=== PATIENT | female | born 1930 | race American Indian/Alaskan Native ===

== ENCOUNTER 2016-10-05 11:01 | Day surgery (SDC) | payer MEDICARE ==
[~2016-10-05 11:01] MED LIST: IOPIDINE OD ONE; MYDRIACYL 1% OD ONE; NEOFRIN OD ONE
[2016-10-05 11:38] VITALS: BP 134/78
[2016-10-05] MEDS ORDERED: NEOFRIN OD ONE (11:56)
[2016-10-05] MEDS ORDERED: IOPIDINE OD ONE (11:56)
[2016-10-05] MEDS ORDERED: MYDRIACYL 1% OD ONE (11:56)
== END 2016-10-05 11:02 | disposition home or self-care (01) ==
LOC: OR 11:01
PROVIDERS: ATTEND Specialist
DX: H26.491 Other secondary cataract, right eye (principal); E11.36 Type 2 diabetes mellitus with diabetic cataract; I10 Essential (primary) hypertension; Z90.710 Acquired absence of both cervix and uterus; Z98.890 Other specified postprocedural states
CPT/HCPCS: 82962

== ENCOUNTER 2017-09-28 17:45 | Emergency (ER) | payer MEDICARE ==
--- NOTE | 2017-09-28 18:24 | Emergency Department Report ---
ED Lower Extremity HPI - General Chief Complaint: Extremity Injury, Lower Stated Complaint: FOOT PAIN Time Seen by Provider: 09/28/17 18:23 Source: patient, EMS Mode of arrival: Stretcher Limitations: Physical Limitation - History of Present Illness Initial Comments: Patient is an 87-year-old female that presents emergency room with right foot pain and redness and swelling 4 days. Patient was brought in by EMS due to inability to put weight on that right foot. Patient saw her primary care was given a shot of steroids and prescribed probenecid for possible gout flareup. Patient states the pain is a 7 out of 10 patient states the pain has improved slightly but is still significant. Patient denies trauma and fall. Patient denies chest pain shortness of breath. Patient denies calf pain or calf tenderness.. Patient has a history of diabetes, hypertension, hyperlipidemia, and CHF. MD Complaint: other (right foot pain without injury) -: Sudden Severity: severe Severity scale (0 -10): 7 Improves With: rest Worsens With: weight bearing, movement, palpation Associated Symptoms: swelling, unable to bear weight - Related Data Home Medications Medication Instructions Recorded Confirmed Last Taken Aspirin [Adult Low Dose Aspirin EC] 81 mg PO QDAY 09/14/16 09/21/16 Unknown amLODIPine [Norvasc] 10 mg PO DAILY 09/14/16 09/21/16 Unknown glipiZIDE [Glucotrol] 5 mg PO QDAY 09/14/16 09/21/16 Unknown metFORMIN [Glucophage] 500 mg PO BID 09/14/16 09/21/16 Unknown Previous Rx's Medication Instructions Recorded Last Taken Type Sulfamethoxazole/Trimethoprim 1 each PO BID 10 Days #20 tablet 09/28/17 Unknown Rx [Bactrim DS TAB] methylPREDNISolone [Medrol] 4 mg PO DAILY 6 Days #1 tab.ds.pk 09/28/17 Unknown Rx Allergies Allergy/AdvReac Type Severity Reaction Status Date / Time No Known Allergies Allergy Unverified 09/14/16 14:36 ED Review of Systems ROS: Stated complaint: FOOT PAIN Other details as noted in HPI Comment: All other systems reviewed and negative Constitutional: denies: chills, fever Eyes: denies: eye pain, eye discharge, vision change ENT: denies: ear pain, throat pain Respiratory: denies: cough, shortness of breath, wheezing Cardiovascular: denies: chest pain, palpitations Endocrine: no symptoms reported Gastrointestinal: denies: abdominal pain, nausea, diarrhea Genitourinary: denies: urgency, dysuria, discharge Musculoskeletal: denies: back pain, joint swelling, arthralgia Skin: denies: rash, lesions Neurological: denies: headache, weakness, paresthesias Psychiatric: denies: anxiety, depression Hematological/Lymphatic: denies: easy bleeding, easy bruising ED Past Medical Hx - Past Medical History Previous Medical History?: Yes Hx Hypertension: Yes Hx Congestive Heart Failure: Yes Hx Diabetes: Yes Additional medical history: gout, hld. - Surgical History Past Surgical History?: No - Family History Family history: no significant, hypertension - Social History Smoking Status: Never Smoker Substance Use Type: None - Medications Home Medications: Home Medications Medication Instructions Recorded Confirmed Last Taken Type Aspirin [Adult Low Dose Aspirin EC] 81 mg PO QDAY 09/14/16 09/21/16 Unknown History amLODIPine [Norvasc] 10 mg PO DAILY 09/14/16 09/21/16 Unknown History glipiZIDE [Glucotrol] 5 mg PO QDAY 09/14/16 09/21/16 Unknown History metFORMIN [Glucophage] 500 mg PO BID 09/14/16 09/21/16 Unknown History Sulfamethoxazole/Trimethoprim 1 each PO BID 10 Days #20 tablet 09/28/17 Unknown Rx [Bactrim DS TAB] methylPREDNISolone [Medrol] 4 mg PO DAILY 6 Days #1 tab.ds.pk 09/28/17 Unknown Rx ED Physical Exam - General Limitations: Physical Limitation General appearance: alert, in no apparent distress - Head Head exam: Present: atraumatic, normocephalic - Eye Eye exam: Present: normal appearance - ENT ENT exam: Present: mucous membranes moist - Neck Neck exam: Present: normal inspection - Respiratory Respiratory exam: Present: normal lung sounds bilaterally. Absent: respiratory distress - Cardiovascular Cardiovascular Exam: Present: regular rate, normal rhythm. Absent: systolic murmur, diastolic murmur, rubs, gallop - GI/Abdominal GI/Abdominal exam: Present: soft, normal bowel sounds - Extremities Exam Extremities exam: Present: normal inspection, other (right foot tenderness to palpation over MTP joint and distal foot. redness noted on rt big toe and dorsal foot. ttp. ) - Back Exam Back exam: Present: normal inspection - Neurological Exam Neurological exam: Present: alert, oriented X3 - Psychiatric Psychiatric exam: Present: normal affect, normal mood - Skin Skin exam: Present: warm, dry, intact, normal color. Absent: rash ED Course Vital Signs 09/28/17 09/28/17 09/28/17 17:56 19:17 19:30 Temperature 98 F Pulse Rate 70 Respiratory 16 Rate Blood Pressure 148/72 122/69 O2 Sat by Pulse 99 98 98 Oximetry ED Lower Extremity MDM - Lab Data Result diagrams: 09/28/17 19:08 09/28/17 19:08 - Radiology Data Radiology results: image reviewed interpreted by me: No acute findings on x-ray of foot - Medical Decision Making is a 87-year-old female that presented with right foot pain, tenderness, and swelling and warmth. Findings consistent with gouty arthritis and cellulitis. Will continue probenecid as PCP prescribed. Will add Bactrim and Medrol Dosepak. All results discussed with patient and family. patient stable for discharge. - Differential Diagnosis gout/ oa. cellulitis. pain. sprain. Critical care attestation.: If time is entered above; I have spent that time in minutes in the direct care of this critically ill patient, excluding procedure time. ED Disposition Clinical Impression: Foot pain, Cellulitis, Gout Disposition: - TO HOME OR SELFCARE Is pt being admited?: No Does the pt Need Aspirin: No Condition: Stable Instructions: Cellulitis (ED), Acute Gouty Arthritis (ED) Additional Instructions: Patient to follow-up with primary care in 3-5 days. Patient to return to ER if condition worsens. Patient to see orthopedist in 3-5 days. Patient to take Tylenol or ibuprofen when necessary for pain. Patient to increase water. Patient to rest and elevate limb. Patient is taking prescription medications as directed. Prescriptions: methylPREDNISolone [Medrol] 4 mg PO DAILY 6 Days #1 tab.ds.pk Sulfamethoxazole/Trimethoprim [Bactrim DS TAB] 1 each PO BID 10 Days #20 tablet Time of Disposition: 20:19
[2017-09-28 19:39] LABS: Basophils # (Auto) 0.1 K/mm3 (0.0-0.1); Basophils % (Auto) 0.5 % (0.0-1.8); Eosinophils # (Auto) 0.2 K/mm3 (0.0-0.4); Eosinophils % (Auto) 1.7 % (0.0-4.3); Hematocrit 31.2 % (30.3-42.9); Hemoglobin 10.1 gm/dl (10.1-14.3); Lymphocytes # (Auto) 1.6 K/mm3 (1.2-5.4); Lymphocytes % (Auto) 12.4 % (13.4-35.0); Mean Corpuscular HGB Conc 32 % (30-34); Mean Corpuscular Hemoglobin 28 pg (28-32); Mean Corpuscular Volume 88 fl (79-97); Monocytes # (Auto) 1.3 K/mm3 (0.0-0.8); Monocytes % (Auto) 10.3 % (0.0-7.3); Platelet Count 341 K/mm3 (140-440); Red Blood Count 3.55 M/mm3 (3.65-5.03); Red Cell Distribution Width 13.3 % (13.2-15.2)
[2017-09-28 19:43] LABS: Albumin 3.2 g/dL (3.9-5); Calcium 9.7 mg/dL (8.4-10.2)
[2017-09-28 19:57] VITALS: BP 122/69
--- NOTE | 2017-09-28 20:37 | XRay Report ---
FINAL REPORT EXAM: XR FOOT 3+V RT HISTORY: FOOT PAIN TECHNIQUE: Right foot three views PRIORS: None. FINDINGS: There is hallux valgus deformity with approximately 36 degrees of angulation at the 1st metatarsal-phalangeal joint. No acute fractures are identified. Remaining joint spaces are within normal limits. Skeletal structures are osteopenic. No erosive bony changes are observed IMPRESSION: Hallux valgus Osteopenia
== END 2017-09-28 23:38 | disposition home or self-care (01) ==
LOC: ED 17:45
DX: L03.115 Cellulitis of right lower limb (principal); M10.9 Gout, unspecified; I11.0 Hypertensive heart disease with heart failure; E11.9 Type 2 diabetes mellitus without complications
CPT/HCPCS: 36415; 80053; 84550; 85025

== ENCOUNTER 2017-10-01 16:40 | Inpatient (IN) | payer MEDICARE ==
--- NOTE | 2017-10-01 22:52 | Emergency Department Report ---
ED Extremity Problem HPI - General Chief complaint: Extremity Injury, Lower Stated complaint: GOUT Time Seen by Provider: 10/01/17 22:33 Source: patient, family, EMS Mode of arrival: Wheelchair Limitations: No Limitations - History of Present Illness Initial comments: Family brought patient and report patient was here on 09/28/2017 with bilateral foot pain and was diagnosed with gout flare up. Patient says she did not know she had gout in tissue was diagnosed 3 days ago. She said redness and swelling is getting worse and she was placed on antibiotic and is not getting any better. Her daughter brought antibiotic which is Bactrim and said that patient has been taking this since Sunday. Patient was seen by Dr. Jiang patient says she went to see her primary care physician and her primary care physician placed her on probenecid which she stopped taking because she was told it is not good for her stomach or blood pressure. She was also placed on Solu- Medrol. She reports that she saw her primary care on Sunday of last week and was also told that she had gout. Upon reviewing labs from 09/28/2017 uric acid was normal patient had mild elevation in white count and her potassium was 3.1. Patient said redness and swelling to her feet are getting worse. She said her blood sugar today was at 104. Denies any increase in urination or increase in thirst. Denies any abdominal or back pain. Pain to both feet and great toe is 10 out of 10 worse with movement better with rest. Patient is a history of congestive heart failure, diabetes, hypertension and high cholesterol. She denies any numbness or 2 went to extremities. Her daughter reports that patient is unable to walk around because of pain to both feet. She said the patient has a walker at home and she cannot use that because she is having too much pain. MD Complaint: extremity pain, extremity swelling, joint swelling, joint paint Onset/Timin -: Gradual Location: bilateral lower extremity (both feet) History of Same: No -: Yes arthralgia, No fever, No associated dyspnea, No associated chest pain Severity scale (0 -10): 10 Quality: constant, other (follow-up in) Consistency: constant Improves with: immobilization, rest Worsens with: weight bearing, walking, exertion, palpation Associated Symptoms: arthralgias, other (redness and swelling). denies: chest pain, shortness of breath, fever, myalgias, rash - Related Data Home Medications Medication Instructions Recorded Confirmed Last Taken Aspirin [Adult Low Dose Aspirin EC] 81 mg PO QDAY 09/14/16 09/21/16 Unknown amLODIPine [Norvasc] 10 mg PO DAILY 09/14/16 09/21/16 Unknown glipiZIDE [Glucotrol] 5 mg PO QDAY 09/14/16 09/21/16 Unknown metFORMIN [Glucophage] 500 mg PO BID 09/14/16 09/21/16 Unknown Previous Rx's Medication Instructions Recorded Last Taken Type Sulfamethoxazole/Trimethoprim 1 each PO BID 10 Days #20 tablet 09/28/17 Unknown Rx [Bactrim DS TAB] methylPREDNISolone [Medrol] 4 mg PO DAILY 6 Days #1 tab.ds.pk 09/28/17 Unknown Rx Allergies Allergy/AdvReac Type Severity Reaction Status Date / Time No Known Allergies Allergy Unverified 09/14/16 14:36 ED Review of Systems ROS: Stated complaint: GOUT Other details as noted in HPI Comment: All other systems reviewed and negative Constitutional: no symptoms reported Eyes: denies: eye pain, eye discharge Respiratory: no symptoms reported Cardiovascular: denies: chest pain, palpitations, dyspnea on exertion, edema, syncope, paroxysmal nocturnal dyspnea Gastrointestinal: denies: abdominal pain, nausea, vomiting, diarrhea, constipation, hematemesis, melena, hematochezia Genitourinary: denies: dysuria Musculoskeletal: joint swelling, arthralgia. denies: back pain, myalgia Skin: other (redness and swelling to great toe of both feet) Neurological: abnormal gait (due to pain to both feet). denies: headache, numbness, paresthesias, confusion ED Past Medical Hx - Past Medical History Previous Medical History?: Yes Hx Hypertension: Yes Hx Congestive Heart Failure: Yes Hx Diabetes: Yes Additional medical history: gout, hld. - Surgical History Past Surgical History?: No - Family History Family history: hypertension - Social History Smoking Status: Never Smoker Substance Use Type: None - Medications Home Medications: Home Medications Medication Instructions Recorded Confirmed Last Taken Type Aspirin [Adult Low Dose Aspirin EC] 81 mg PO QDAY 09/14/16 09/21/16 Unknown History amLODIPine [Norvasc] 10 mg PO DAILY 09/14/16 09/21/16 Unknown History glipiZIDE [Glucotrol] 5 mg PO QDAY 09/14/16 09/21/16 Unknown History metFORMIN [Glucophage] 500 mg PO BID 09/14/16 09/21/16 Unknown History Sulfamethoxazole/Trimethoprim 1 each PO BID 10 Days #20 tablet 09/28/17 Unknown Rx [Bactrim DS TAB] methylPREDNISolone [Medrol] 4 mg PO DAILY 6 Days #1 tab.ds.pk 09/28/17 Unknown Rx ED Physical Exam - General Limitations: No Limitations General appearance: alert, in no apparent distress - Head Head exam: Present: atraumatic, normocephalic, normal inspection - Eye Eye exam: Present: normal appearance, PERRL, EOMI Pupils: Present: normal accommodation - ENT ENT exam: Present: normal exam, normal orophraynx, mucous membranes moist - Neck Neck exam: Present: normal inspection, full ROM. Absent: tenderness, meningismus, lymphadenopathy, thyromegaly - Respiratory Respiratory exam: Present: normal lung sounds bilaterally. Absent: respiratory distress, chest wall tenderness - Cardiovascular Cardiovascular Exam: Present: normal rhythm, tachycardia, normal heart sounds. Absent: systolic murmur, diastolic murmur - GI/Abdominal GI/Abdominal exam: Present: soft, normal bowel sounds. Absent: distended, tenderness, guarding, rebound, rigid, organomegaly, mass, bruit, pulsatile mass , hernia - Extremities Exam Extremities exam: Present: tenderness, normal capillary refill, joint swelling, other (difficulty ambulating and due to pain.). Absent: normal inspection, full ROM, pedal edema, calf tenderness - Expanded Lower Extremity Exam Left Foot/Toe exam: Present: tenderness, swelling, erythema. Absent: normal inspection, full ROM, abrasion, laceration, ecchymosis, deformity, crepidus Neuro vascular tendon exam: Present: significant pain with passive ROM of distal joint. Absent: no vascular compromise, abnormal cap refill, motor deficit, sensory deficit, tendon deficit, extremity cold to touch, pallor, abnormal 2-point discrimination, decreased fine/light touch, foot drop, peroneal nerve deficit Gait: Positive: antalgic Right Hip exam: Present: normal inspection, full ROM. Absent: tenderness, swelling, abrasion Foot/Toe exam: Present: tenderness, swelling Neuro vascular tendon exam: Present: significant pain with passive ROM of distal joint. Absent: no vascular compromise, pulse deficit, abnormal cap refill, motor deficit, sensory deficit, tendon deficit, extremity cold to touch , pallor, abnormal 2-point discrimination, decreased fine/light touch, foot drop , peroneal nerve deficit Gait: Positive: antalgic - Back Exam Back exam: Present: normal inspection, full ROM, other (physical T and ambulated due to pain to both feet. Patient able to stand and take some steps but she said is very painful). Absent: tenderness, CVA tenderness (R), CVA tenderness (L), muscle spasm, paraspinal tenderness, vertebral tenderness, rash noted - Neurological Exam Neurological exam: Present: alert, oriented X3, abnormal gait, reflexes normal ( gait is abnormal due to pain to both feet. Patient has unsteady gait) ED Course Vital Signs 10/01/17 17:26 Temperature 98.3 F Pulse Rate 106 H Respiratory 15 Rate Blood Pressure 104/68 O2 Sat by Pulse 96 Oximetry - Reevaluation(s) Reevaluation #1: 10/01/17 23:19 Patient is stable at present. Her daughter is at her bedside. Reevaluation #2: 10/02/17 00:20 Patient given Tylenol No. 3 one tablet in the emergency room which relieved her pain to both feet. Labs and x-ray result noted. Patient received Zosyn 3.375 g IV. She received 250 mils of IV. Her lungs are clear. Patient said her pain is better. Patient to be admitted to hospitalist service .n Reevaluation #3: 10/02/17 03:27 I collaborated with hospitalist who is on patient presentation, laboratory findings, clinical findings and x-ray findings. He agrees to accept patient to be admitted to inpatient. Patient updated. ED Medical Decision Making - Lab Data Result diagrams: 10/01/17 23:24 10/01/17 23:24 Lab Results 10/01/17 10/01/17 10/02/17 Range/Units 23:24 23:24 02:00 WBC 14.1 H (4.5-11.0) K/mm3 RBC 3.57 L (3.65-5.03) M/mm3 Hgb 10.2 (10.1-14.3) gm/dl Hct 31.8 (30.3-42.9) % MCV 89 (79-97) fl MCH 29 (28-32) pg MCHC 32 (30-34) % RDW 14.0 (13.2-15.2) % Plt Count 374 (140-440) K/mm3 Lymph % (Auto) 14.4 (13.4-35.0) % [place] % (Auto) 9.6 H (0.0-7.3) % Eos % (Auto) 2.0 (0.0-4.3) % Baso % (Auto) 0.3 (0.0-1.8) % Lymph # 2.0 (1.2-5.4) K/mm3 [place] # 1.4 H (0.0-0.8) K/mm3 Eos # 0.3 (0.0-0.4) K/mm3 Baso # 0.0 (0.0-0.1) K/mm3 Seg Neutrophils % 73.7 H (40.0-70.0) % Seg Neutrophils # 10.4 H (1.8-7.7) K/mm3 Sodium 137 (137-145) mmol/L Potassium 5.0 D (3.6-5.0) mmol/L Chloride 95.2 L (98-107) mmol/L Carbon Dioxide 24 (22-30) mmol/L Anion Gap 23 mmol/L BUN 52 H (7-17) mg/dL Creatinine 2.1 H D (0.7-1.2) mg/dL Estimated GFR 27 ml/min BUN/Creatinine Ratio 25 % Glucose 251 H (65-100) mg/dL Lactic Acid 2.00 (0.7-2.0) mmol/L Calcium 10.3 H (8.4-10.2) mg/dL - Radiology Data Radiology results: report reviewed X-ray of bilateral foot 2 view revealed soft tissues swelling at the first metatarsophalangeal joint bilaterally and of the forefoot bilaterally. No foreign body seen. Bone mineralization shows generalized osteopenia Mild degenerative arthrosis at the first metatarsal phalangeal joint bilaterally No mention of bone infection or fracture. Mild hallux valgus bilaterally - Medical Decision Making ED course: Patient daughter brought her to the emergency room report that patient with redness and swelling that has worsened over the last 3 days since she's been here on 09/28/2017 and was seen and treated in the emergency room. They report prior to that they were seen by their primary care doctor who is Dr. Lynne Owens in [place]. She said that her primary care doctor told her that she has gout and started her on probenecid which she stopped. She said that she came to the hospital 3 days ago when she was started on steroids and antibiotic which is Bactrim DS. Medical records indicate that patient was seen by Dr. Morena SO and treated for cellulitis and inflammation to both feet. She was given Bactrim DS which she says she's been taking since Sunday and Medrol Dosepak. Patient daughter reported that she cannot walk and swelling and redness is worsening. X-ray of both feet two-view reveals patient with soft tissue swelling to both first metatarsophalangeal joint and boat forefoot. She also has generalized osteopenia. There is no mention for osteomyelitis or any fractures or dislocation. Patient laboratory reflect leukocytosis which has not improved but has not increased since Sunday. Chemistry 3 days ago show the patient with potassium of 3.1 and her potassium now is at 5.0. Patient with worsening renal insufficiency since Sunday. Patient with a history of diabetes , hypertension, hyperlipidemia and congestive heart failure. She was given Tylenol No. 3 one tablet in the emergency room for pain to both feet which relieved her pain. Patient was given 250 mils of normal saline which was stopped due to her congestive heart failure. Patient lung sounds are clear and she has no evidence of congestive heart failure exacerbation. She does not have any swelling in her legs. She does have redness swelling and tenderness to both great toes and first metacarpal joint area distally on both feet.. Lactic acid was normal. Please refer to laboratory section and radiology section for detail on x-ray and laboratory report. Patient blood cultures are pending and she was started on Zosyn 3.375 g. I discussed this case with Dr. Kline who agrees. The patient should be admitted for failed outpatient treatment. I spoke to the hospitalist who is Dr. Luque and he agrees to accept patient to be admitted as inpatient. Patient signed over to hospitalist. She is stable and her family is aware that she will be admitted. Patient agrees to admission. Critical care attestation.: If time is entered above; I have spent that time in minutes in the direct care of this critically ill patient, excluding procedure time. ED Disposition Clinical Impression: Arthralgia of both feet, Renal insufficiency Leukocytosis, unspecified Qualifiers: Leukocytosis type: unspecified Qualified Code(s): D72.829 - Elevated white blood cell count, unspecified Cellulitis of great toe Qualifiers: Laterality: unspecified laterality Qualified Code(s): L03.039 - Cellulitis of unspecified toe Disposition: OP ADMIT IP TO THIS HOSP Is pt being admited?: Yes Does the pt Need Aspirin: No Condition: Stable
[2017-10-01] MEDS ORDERED: TYLENOL #3 PO ONE (22:59)
[2017-10-01 23:40] LABS: Basophils % (Auto) 0.3 % (0.0-1.8); Eosinophils # (Auto) 0.3 K/mm3 (0.0-0.4); Hematocrit 31.8 % (30.3-42.9); Hemoglobin 10.2 gm/dl (10.1-14.3); Lymphocytes % (Auto) 14.4 % (13.4-35.0); Mean Corpuscular HGB Conc 32 % (30-34); Mean Corpuscular Hemoglobin 29 pg (28-32); Mean Corpuscular Volume 89 fl (79-97); Monocytes # (Auto) 1.4 K/mm3 (0.0-0.8); Monocytes % (Auto) 9.6 % (0.0-7.3); Platelet Count 374 K/mm3 (140-440); Red Blood Count 3.57 M/mm3 (3.65-5.03)
[2017-10-02] MEDS ORDERED: ZOSYN/NS 3.375GM/50ML 3.375 GM/50 ML BAG IV SCH
[2017-10-02] MEDS ORDERED: NACL 0.9% 1000 ML 1,000 ML IV ONE (00:03)
[2017-10-02 00:04] LABS: Calcium 10.3 mg/dL (8.4-10.2)
--- NOTE | 2017-10-02 00:13 | XRay Report ---
FINAL REPORT PROCEDURE: XR FOOT BILAT 2V TECHNIQUE: BILATERAL foot radiographs, AP and lateral views. HISTORY: swelling/redness/pain COMPARISON: No prior studies are available for comparison. FINDINGS: RIGHT FOOT: Fracture (s) and/or Dislocation(s): None. Alignment: Normal. Joint space(s): There is mild degenerative arthrosis of the 1st metatarsophalangeal joint with mild hallux valgus configuration. Soft tissues: There is soft tissue swelling at the 1st metatarsophalangeal joint and of the forefoot. Bone mineralization: There is generalized osteopenia. Foreign bodies: None . Calcaneal spurring: None. LEFT FOOT: Fracture (s) and/or Dislocation(s): None. Alignment: Normal. Joint space(s): There is mild degenerative arthrosis of the 1st metatarsophalangeal joint with mild hallux valgus configuration. Soft tissues: There is soft tissue swelling at the 1st metatarsophalangeal joint and of the forefoot. Bone mineralization: There is generalized osteopenia. Foreign bodies: None . Calcaneal spurring: None. IMPRESSION: There are no fractures or malalignments. There is soft tissue swelling of the 1st metatarsophalangeal joints bilaterally and of the forefoot bilaterally.
--- NOTE | 2017-10-02 08:58 | History and Physical Report ---
History of Present Illness Date of examination: 10/02/17 Date of admission: 10/02/17 07:33 Chief complaint: Right foot pain for the last 4-5 days History of present illness: Very pleasant 67-year-old female patient with significant past medical history of osteoarthritis and recently diagnosed gout type 2, diabetes mellitus hypertension, presented to the emergency room with the bilateral foot pain right more than left recently diagnosed with gout flared up, was given some medications with the no relief. Patient denies any fever no nausea vomiting Patient denies any trauma Initial workup did not reveal any acute abnormalities Bilateral foot x-rays; no fractures or malalignment , soft tissue swelling present Past History Past Medical History: arthritis (gout.), diabetes, hypertension, hyperlipidemia Past Surgical History: cataract removal Social history: lives with family, full code. denies: smoking, alcohol abuse, prescription drug abuse Family history: hypertension Medications and Allergies Allergies Allergy/AdvReac Type Severity Reaction Status Date / Time No Known Allergies Allergy Unverified 09/14/16 14:36 Home Medications Medication Instructions Recorded Confirmed Last Taken Type Aspirin [Adult Low Dose Aspirin EC] 81 mg PO QDAY 09/14/16 09/21/16 Unknown History amLODIPine [Norvasc] 10 mg PO DAILY 09/14/16 09/21/16 Unknown History glipiZIDE [Glucotrol] 5 mg PO QDAY 09/14/16 09/21/16 Unknown History metFORMIN [Glucophage] 500 mg PO BID 09/14/16 09/21/16 Unknown History Sulfamethoxazole/Trimethoprim 1 each PO BID 10 Days #20 tablet 09/28/17 Unknown Rx [Bactrim DS TAB] methylPREDNISolone [Medrol] 4 mg PO DAILY 6 Days #1 tab.ds.pk 09/28/17 Unknown Rx Active Meds: Active Medications Amlodipine Besylate (Norvasc) 10 mg PO DAILY ABEL Aspirin (Halfprin Ec) 81 mg PO QDAY ABEL Glipizide (Glucotrol) 5 mg PO QDAY ABEL Sodium Chloride (Nacl 0.9% 1000 Ml) 1,000 mls @ 150 mls/hr IV DIRECT ABEL Piperacillin Sod/Tazobactam Sod (Zosyn/Ns 3.375gm/50ml) 3.375 gm in 50 mls @ 100 mls/hr IV Q6HR ABEL Last Admin: 10/02/17 00:15 Dose: 100 mls/hr Insulin Aspart (Novolog) 0 units SUB-Q ACHS ABEL; Protocol Exam - Constitutional Vitals: Temp Pulse Resp BP Pulse Ox 98.0 F 77 17 107/66 96 10/02/17 03:58 10/02/17 03:58 10/02/17 03:58 10/02/17 03:58 10/02/17 03:58 General appearance: Present: mild distress, cachectic, other (very frail) - EENT Eyes: Present: PERRL, EOM intact - Neck Neck: Present: supple, normal ROM - Respiratory Respiratory effort: normal Respiratory: bilateral: diminished, negative: rales, rhonchi, wheezing - Cardiovascular Rhythm: regular Heart Sounds: Present: S1 & S2 - Extremities Extremities: no ischemia Extremity abnormal: edema, other (swelling tenderness right and left great toe) - Abdominal General gastrointestinal: Present: soft, non-tender, non-distended, normal bowel sounds - Integumentary Integumentary: Present: clear, warm - Musculoskeletal Musculoskeletal: strength equal bilaterally, generalized weakness - Psychiatric Psychiatric: appropriate mood/affect, cooperative, other (confused at times) - Neurologic Neurologic: moves all extremities Results - Labs CBC & Chem 7: 10/01/17 23:24 10/01/17 23:24 Labs: Abnormal lab results 10/01/17 10/01/17 Range/Units 23:24 23:24 WBC 14.1 H (4.5-11.0) K/mm3 RBC 3.57 L (3.65-5.03) M/mm3 [place] % (Auto) 9.6 H (0.0-7.3) % [place] # 1.4 H (0.0-0.8) K/mm3 Seg Neutrophils % 73.7 H (40.0-70.0) % Seg Neutrophils # 10.4 H (1.8-7.7) K/mm3 Chloride 95.2 L (98-107) mmol/L BUN 52 H (7-17) mg/dL Creatinine 2.1 H D (0.7-1.2) mg/dL Glucose 251 H (65-100) mg/dL Calcium 10.3 H (8.4-10.2) mg/dL Assessment and Plan --Possible gouty arthritis; NSAIDs, steroids, pain medications, supportive care --Leukocytosis/possible cellulitis, elevated the limb Empiric antibiotics with Zosyn, follow cultures --Type 2 diabetes mellitus; Accu-Chek sliding scale coverage and ADA diet Resume oral hypoglycemics. hold metformin in view of acute kidney injury --Hypertension; moderate control continue home amlodipine and when necessary medications. --DVT prophylaxis; Lovenox --Full CODE STATUS --Physical therapy occupational therapy --DC planning possible placement versus home with home health When patient is medically stable We will closely monitor the patient and adjust the management as needed. Plan of care is reviewed with patient's niece Ms. Yulissa Sherwood over the phone Answered all her questions
[2017-10-02] MEDS ORDERED: GLUCOPHAGE PO SCH (10:00)
[2017-10-02] MEDS: NACL 0.9% 1000 ML 1,000 ML IV SCH ×2 (13:06→23:30)
[2017-10-02] MEDS: ZOSYN/NS 2.25 GM/50ML 2.25 GM/50 ML BAG IV SCH ×2 (13:17→18:33)
[2017-10-02] MEDS: NOVOLOG SUB-Q SCH ×3 (13:24→22:29)
[2017-10-02] MEDS: GLUCOTROL PO SCH (13:32)
[2017-10-02] MEDS: NORVASC PO SCH (13:33)
[2017-10-02] MEDS: HALFPRIN EC PO SCH (13:33)
[2017-10-02] MEDS: MOTRIN PO PRN (14:54)
[2017-10-02] MEDS ORDERED: PERCOCET 5/325 PO PRN (15:07)
[2017-10-03] MEDS: ZOSYN/NS 2.25 GM/50ML 2.25 GM/50 ML BAG IV SCH ×4 (00:32→19:05)
[2017-10-03] MEDS: NOVOLOG SUB-Q SCH ×4 (07:30→22:49)
[2017-10-03 07:39] LABS: Basophils % (Auto) 0.2 % (0.0-1.8); Eosinophils # (Auto) 0.3 K/mm3 (0.0-0.4); Eosinophils % (Auto) 2.4 % (0.0-4.3); Hematocrit 27.8 % (30.3-42.9); Hemoglobin 8.6 gm/dl (10.1-14.3); Lymphocytes # (Auto) 1.5 K/mm3 (1.2-5.4); Lymphocytes % (Auto) 12.3 % (13.4-35.0); Mean Corpuscular HGB Conc 31 % (30-34); Mean Corpuscular Hemoglobin 28 pg (28-32); Mean Corpuscular Volume 91 fl (79-97); Monocytes % (Auto) 8.1 % (0.0-7.3); Platelet Count 314 K/mm3 (140-440); Red Blood Count 3.07 M/mm3 (3.65-5.03); Red Cell Distribution Width 14.2 % (13.2-15.2)
[2017-10-03 08:22] LABS: Calcium 9.5 mg/dL (8.4-10.2)
[2017-10-03] MEDS: HALFPRIN EC PO SCH (09:29)
[2017-10-03] MEDS: NORVASC PO SCH (09:30)
[2017-10-03] MEDS: GLUCOTROL PO SCH (09:30)
[2017-10-03] MEDS: NACL 0.9% 1000 ML 1,000 ML IV SCH (09:38)
--- NOTE | 2017-10-03 20:40 | Progress Note ---
Assessment and Plan Assessment and plan: --Possible gouty arthritis; NSAIDs, steroids, pain medications, supportive care --Leukocytosis/possible cellulitis, elevated the limb Empiric antibiotics with Zosyn, follow cultures --Type 2 diabetes mellitus; Accu-Chek sliding scale coverage and ADA diet Resume oral hypoglycemics. hold metformin in view of acute kidney injury --Hypertension; moderate control continue home amlodipine and when necessary medications. --DVT prophylaxis; Lovenox --Full CODE STATUS --Physical therapy occupational therapy --DC planning possible placement versus home with home health When patient is medically stable We will closely monitor the patient and adjust the management as needed. Plan of care is reviewed with patient's niece Ms. Duenas Askew the bedside Patient and Ms. Duenas have numerous questions, answered all of them Answered all her questions Possible discharge to subacute rehabilitation when medically stable History Interval history: Patient seen and examined medical records reviewed Physical extubated today sitting on the chair Bilateral feet, and great toe swelling and redness significantly improved Still has some mild pain Vital Signs reviewed Hospitalist Physical - Constitutional Vitals: Temp Pulse Resp BP Pulse Ox 98.9 F 72 19 116/73 97 10/03/17 15:53 10/03/17 15:53 10/03/17 15:53 10/03/17 15:53 10/03/17 15:53 General appearance: Present: mild distress, cachectic, other (very frail) - EENT Eyes: Present: PERRL - Neck Neck: Present: supple, normal ROM - Respiratory Respiratory effort: normal Respiratory: bilateral: diminished, negative: rales, rhonchi, wheezing - Cardiovascular Rhythm: regular Heart Sounds: Present: S1 & S2 - Extremities Extremities: no ischemia, No edema, abnormal (mild swelling of metatarsophalangeal joint) - Abdominal General gastrointestinal: soft, non-tender, non-distended, normal bowel sounds - Integumentary Integumentary: Present: clear, warm - Psychiatric Psychiatric: appropriate mood/affect, cooperative, other (confused at times) - Neurologic Neurologic: CNII-XII intact, moves all extremities Results - Labs CBC & Chem 7: 10/03/17 07:09 10/03/17 07:09 Labs: Laboratory Last Values WBC 12.3 K/mm3 (4.5-11.0) H 10/03/17 07:09 RBC 3.07 M/mm3 (3.65-5.03) L 10/03/17 07:09 Hgb 8.6 gm/dl (10.1-14.3) L 10/03/17 07:09 Hct 27.8 % (30.3-42.9) L 10/03/17 07:09 MCV 91 fl (79-97) 10/03/17 07:09 MCH 28 pg (28-32) 10/03/17 07:09 MCHC 31 % (30-34) 10/03/17 07:09 RDW 14.2 % (13.2-15.2) 10/03/17 07:09 Plt Count 314 K/mm3 (140-440) 10/03/17 07:09 Lymph % (Auto) 12.3 % (13.4-35.0) L 10/03/17 07:09 [place] % (Auto) 8.1 % (0.0-7.3) H 10/03/17 07:09 Eos % (Auto) 2.4 % (0.0-4.3) 10/03/17 07:09 Baso % (Auto) 0.2 % (0.0-1.8) 10/03/17 07:09 Lymph # 1.5 K/mm3 (1.2-5.4) 10/03/17 07:09 [place] # 1.0 K/mm3 (0.0-0.8) H 10/03/17 07:09 Eos # 0.3 K/mm3 (0.0-0.4) 10/03/17 07:09 Baso # 0.0 K/mm3 (0.0-0.1) 10/03/17 07:09 Seg Neutrophils % 77.0 % (40.0-70.0) H 10/03/17 07:09 Seg Neutrophils # 9.5 K/mm3 (1.8-7.7) H 10/03/17 07:09 Sodium 142 mmol/L (137-145) 10/03/17 07:09 Potassium 5.0 mmol/L (3.6-5.0) 10/03/17 07:09 Chloride 105.1 mmol/L (98-107) 10/03/17 07:09 Carbon Dioxide 25 mmol/L (22-30) 10/03/17 07:09 Anion Gap 17 mmol/L 10/03/17 07:09 BUN 38 mg/dL (7-17) H 10/03/17 07:09 Creatinine 1.4 mg/dL (0.7-1.2) H 10/03/17 07:09 Estimated GFR 43 ml/min 10/03/17 07:09 BUN/Creatinine Ratio 27 % 10/03/17 07:09 Glucose 92 mg/dL (65-100) 10/03/17 07:09 POC Glucose 274 (70-105) H 10/03/17 16:01 Hemoglobin A1c 8.1 % (4-6) H 10/03/17 07:09 Lactic Acid TNR 10/02/17 02:48 Calcium 9.5 mg/dL (8.4-10.2) 10/03/17 07:09 Phosphorus 2.80 mg/dL (2.5-4.5) 10/03/17 07:09 Magnesium 2.10 mg/dL (1.7-2.3) 10/03/17 07:09
[2017-10-04] MEDS: ZOSYN/NS 2.25 GM/50ML 2.25 GM/50 ML BAG IV SCH ×5 (05:46→23:12)
[2017-10-04 07:28] LABS: Basophils % (Auto) 0.3 % (0.0-1.8); Eosinophils # (Auto) 0.3 K/mm3 (0.0-0.4); Eosinophils % (Auto) 2.2 % (0.0-4.3); Hematocrit 28.2 % (30.3-42.9); Hemoglobin 8.8 gm/dl (10.1-14.3); Lymphocytes # (Auto) 2.2 K/mm3 (1.2-5.4); Lymphocytes % (Auto) 14.6 % (13.4-35.0); Mean Corpuscular HGB Conc 31 % (30-34); Mean Corpuscular Hemoglobin 28 pg (28-32); Mean Corpuscular Volume 90 fl (79-97); Monocytes # (Auto) 1.3 K/mm3 (0.0-0.8); Monocytes % (Auto) 8.7 % (0.0-7.3); Platelet Count 317 K/mm3 (140-440); Red Blood Count 3.14 M/mm3 (3.65-5.03); Red Cell Distribution Width 14.3 % (13.2-15.2)
[2017-10-04 07:46] LABS: Calcium 9.4 mg/dL (8.4-10.2)
[2017-10-04] MEDS: NOVOLOG SUB-Q SCH ×4 (08:20→23:12)
[2017-10-04] MEDS: GLUCOTROL PO SCH (10:13)
[2017-10-04] MEDS: HALFPRIN EC PO SCH (10:13)
[2017-10-04] MEDS: NORVASC PO SCH (10:13)
[2017-10-04] MEDS: MOTRIN PO PRN (11:15)
[2017-10-04] MEDS: NACL 0.9% 1000 ML 1,000 ML IV SCH (11:20)
--- NOTE | 2017-10-04 16:21 | Query-Infection ---
Dear ____Shauna Date:__10/04/2017 Pododermatologist/CDS:___Meron Phone#:__[phone] Exercise your independent professional judgment when responding to this query. Questions asked do not imply a particular answer is desired or expected. We greatly appreciate your clarification on this issue. Clinical Documentation States: 87 Year old female was admitted on 10/01/2017 for Right foot pain for the last 4- 5 days. The Hospitalist (Dr. Villatoro) Progress note states "--Leukocytosis/possible cellulitis, elevated the limb Empiric antibiotics with Zosyn, follow cultures." Clinical findings show: (please check applicable parameters) CT (10/01): 106 WBC (10/01): 14.1 Infection, known /suspected, with some of the following indicators; Specify the infection: 3 General parameters [ ] Fever (core temp >38.30C or 100.40F) [ ] Hypothermia (core temp <36C) [X] Heart rate >90 bpm [ ] Tachypnea: >20 bpm or pCO2 < 32 mmHg [ ] Altered mental status [ ] Significant edema / +ve fluid balance (>20 ml/kg 24 h) [ ] Hyperglycemia (Bl. glucose >110 mg/dl) w/o diabetes Inflammatory parameters [X] Leukocytosis (white blood cell count >12,000/l) [ ] Leukopenia (white blood cell count <4,000/l) [ ] Bandemia (immature WBC > 10%) [ ] Leucocyte Left Shift [ ] Plasma procalcitonin>2 SD above the normal value Hemodynamic and tissue perfusion parameters [ ] Arterial hypotension(SBP <90 mmHg, MAP <70 mmHg,or a SBP drop >40 mmHg in adults) [ ] Hyperlactatemia (>3 mmol/l) [ ] Anion Gap (> 11mEG/l) [ ] Decreased capillary refill or mottling Organ dysfunction parameters [ ] Arterial hypoxemia (PaO2/FIO2 <300) [ ] Creatinine increase =0.5 mg/dl [ ] Acute oliguria (urine output <0.5 ml | kg |h or 45 mM/l for at least 2 hrs) [ ] Coagulation abnormalities (INR >1.5 or activated partial thromboplastin time >60 s) [ ] Ileus (absent leoncio wel sounds) [ ] Thrombocytopenia (platelet count <100,000/l) [ ] Hyperbilirubinemia (plasma total bilirubin >4 mg/dl) According to the clinical indications above, can Bacteremia be further specified? If so, please indicate below and in your Progress Notes and/ or Discharge Summary. Indicate if the condition was present on admission. PHYSICIAN RESPONSE: [ ] Sepsis [ ] Severe Sepsis [ ] Septic Shock [ ] Septicemia [ ] Sepsis now resolved [ ] SIRS due to non-infectious cause with organ dysfunction [ ] SIRS due to non-infectious cause without organ dysfunction [x ] Other:_SIRS [ ] Comment/Explanation: Present on Admission: [ x] Yes (Y) [ ] Clinically undeterminable (W) [ ] No (N) [ ] Ruled Out Please also document response in your Progress Notes and/or Discharge Summary and indicate if the condition was present on admission Notes: SIRS/ SIRS WITH ORGAN DYSFUNCTION Systemic inflammatory response syndrome (SIRS) generally refers to the systemic response to trauma/monroe or other insult such as Acute Myocardial Infarction, Acute Pancreatitis, and Major Surgery with symptoms including fever, tachycardia , tachypnea, and leukocytosis (1). BACTEREMIA Presence of viable bacteria in the circulating blood (2). This term is reserved for patients that do not manifest above SIRS response. SEPTICEMIA Generally refers to a systemic disease associated with the presence of pathological microorganisms or toxins in the blood, which can include bacteria, viruses, fungi or other organisms (1). SEPSIS Generally refers to SIRS due infection (1). SEVERE SEPSIS Generally refers to sepsis associated with acute organ dysfunction (1). SEPTIC SHOCK Generally refers to circulatory failure associated with severe sepsis (2), and defined as hypotension or hypoperfusion despite adequate fluid resuscitation (1 hour) (3). REFERENCES: 1. [employer]/Society of Critical Care Medicine Consensus Conference. Definitions for sepsis and organ failure and guidelines for the use of innovative therapies in sepsis. Critical Care Med 1992;20:864 - 74. 2. Billy wu MM, Marybel MP, Viral INDY, Neftaly E, Raf D, Kenneth D, Sd J, Kristen LOPEZ , Miguel BENITO, Sangeeta G; International Sepsis Definitions Conference. 2001 SCCM/ESICM/ACCP/ATS/SIS International Sepsis Definitions Conference. Intensive Care Med. 2002;29(4):530-8. Epub 2002Oct 31. Review. PubMed PMID:[id number] 3. ICD-9-CM Official Guidelines for Coding and Reporting 4. Medscape Drugs, Diseases and Procedures references 5. Lucio Textbook of Internal Medicine. 18th Edition MTDD
--- NOTE | 2017-10-04 16:31 | Query- Renal Failure ---
Erendira Mars___Shauna Date:___10/04/2017 Gas Pipe Layer/CDS:___Meron Phone#:___[phone] Exercise your independent professional judgment when responding to query. Questions asked do not imply a particular answer is desired or expected. We greatly appreciate your clarification on this issue. Clinical Documentation States: 87 Year old female was admitted on 10/01/2017 for Right foot pain for the last 4- 5 days. Clinical Findings Show: 10/01 10/03 Creatinine 2.1 1.4 BUN 52 38 Acute Renal Failure with or due to: [ ] Tubular Necrosis [ ] Medullary Necrosis [ x] Vasomotor Nephropathy [ ] Shock Kidney [ ] Tubular Nephrosis [ ] Renal Tubular Stasis [ ] Cortical Necrosis [ ] Acute Renal Failure (unspecified) [ ] Lower Tubular Nephrosis [ ] Other: [ ] Not Applicable Present on Admission: [ x] Yes (Y) [ ] Clinically undeterminable (W) [ ] No (N) Please also document response in your Progress Notes and/or Discharge Summary and indicate if the condition was present on admission. SCOUT
--- NOTE | 2017-10-04 17:16 | Progress Note ---
Assessment and Plan Assessment and plan: --Possible gouty arthritis; symptoms slightly improved NSAIDs, steroids, pain medications, supportive care --Leukocytosis/possible cellulitis, trending down Empiric antibiotics with Zosyn, follow cultures --Type 2 diabetes mellitus; uncontrolled, secondary to steroid use Continue current oral hypoglycemics, resume metformin Accu-Chek sliding scale coverage and ADA diet --Hypertension; moderate control continue home amlodipine and when necessary medications. --DVT prophylaxis; Lovenox --Full CODE STATUS --Physical therapy occupational therapy --DC planning possible placement versus home with home health When patient is medically stable Plan of care is reviewed with patient's niece Ms. Duenas Askew the bedside Patient and Ms. Duenas have numerous questions, answered all of them Answered all her questions Awaiting subacute rehabilitation placement when medically stable in 1-2 days History Interval history: Sincerely and examined medical records reviewed Feels like he better still has pain in the feet and toes Alert and awake and responding appropriately No new complaints Vital signs reviewed Hospitalist Physical - Constitutional Vitals: Temp Pulse Resp BP Pulse Ox 98.9 F 71 18 146/73 94 10/04/17 07:22 10/04/17 07:22 10/04/17 07:22 10/04/17 07:22 10/04/17 07:22 General appearance: Present: no acute distress, well-nourished - Neck Neck: Present: supple, normal ROM - Respiratory Respiratory effort: normal Respiratory: bilateral: diminished, negative: rales, rhonchi, wheezing - Cardiovascular Rhythm: regular Heart Sounds: Present: S1 & S2 - Extremities Extremities: no ischemia, No edema, abnormal (gout arthritis, ) - Abdominal General gastrointestinal: soft, non-tender, non-distended, normal bowel sounds - Integumentary Integumentary: Present: clear, warm - Psychiatric Psychiatric: appropriate mood/affect, cooperative - Neurologic Neurologic: CNII-XII intact, moves all extremities Results - Labs CBC & Chem 7: 10/04/17 06:57 10/04/17 06:57 Labs: Laboratory Last Values WBC 14.9 K/mm3 (4.5-11.0) H 10/04/17 06:57 RBC 3.14 M/mm3 (3.65-5.03) L 10/04/17 06:57 Hgb 8.8 gm/dl (10.1-14.3) L 10/04/17 06:57 Hct 28.2 % (30.3-42.9) L 10/04/17 06:57 MCV 90 fl (79-97) 10/04/17 06:57 MCH 28 pg (28-32) 10/04/17 06:57 MCHC 31 % (30-34) 10/04/17 06:57 RDW 14.3 % (13.2-15.2) 10/04/17 06:57 Plt Count 317 K/mm3 (140-440) 10/04/17 06:57 Lymph % (Auto) 14.6 % (13.4-35.0) 10/04/17 06:57 [place] % (Auto) 8.7 % (0.0-7.3) H 10/04/17 06:57 Eos % (Auto) 2.2 % (0.0-4.3) 10/04/17 06:57 Baso % (Auto) 0.3 % (0.0-1.8) 10/04/17 06:57 Lymph # 2.2 K/mm3 (1.2-5.4) 10/04/17 06:57 [place] # 1.3 K/mm3 (0.0-0.8) H 10/04/17 06:57 Eos # 0.3 K/mm3 (0.0-0.4) 10/04/17 06:57 Baso # 0.0 K/mm3 (0.0-0.1) 10/04/17 06:57 Seg Neutrophils % 74.2 % (40.0-70.0) H 10/04/17 06:57 Seg Neutrophils # 11.0 K/mm3 (1.8-7.7) H 10/04/17 06:57 Sodium 141 mmol/L (137-145) 10/04/17 06:57 Potassium 4.8 mmol/L (3.6-5.0) 10/04/17 06:57 Chloride 104.9 mmol/L (98-107) 10/04/17 06:57 Carbon Dioxide 23 mmol/L (22-30) 10/04/17 06:57 Anion Gap 18 mmol/L 10/04/17 06:57 BUN 28 mg/dL (7-17) H 10/04/17 06:57 Creatinine 1.1 mg/dL (0.7-1.2) 10/04/17 06:57 Estimated GFR 57 ml/min 10/04/17 06:57 BUN/Creatinine Ratio 25 % 10/04/17 06:57 Glucose 135 mg/dL (65-100) H 10/04/17 06:57 POC Glucose 314 (70-105) H 10/04/17 16:38 Hemoglobin A1c 8.1 % (4-6) H 10/03/17 07:09 Lactic Acid TNR 10/02/17 02:48 Calcium 9.4 mg/dL (8.4-10.2) 10/04/17 06:57 Phosphorus 2.80 mg/dL (2.5-4.5) 10/03/17 07:09 Magnesium 2.00 mg/dL (1.7-2.3) 10/04/17 06:57
[2017-10-05] MEDS: ZOSYN/NS 2.25 GM/50ML 2.25 GM/50 ML BAG IV SCH (06:00)
[2017-10-05] MEDS ORDERED: GLUCOPHAGE PO SCH (08:00)
[2017-10-05] MEDS: NOVOLOG SUB-Q SCH ×2 (09:05→12:54)
[2017-10-05] MEDS: HALFPRIN EC PO SCH (09:43)
[2017-10-05] MEDS: NORVASC PO SCH (09:44)
[2017-10-05] MEDS: GLUCOTROL PO SCH (09:44)
[2017-10-05] MEDS ORDERED: DELTASONE PO SCH (10:00)
--- NOTE | 2017-10-05 11:28 | Discharge Summary ---
Providers - Providers Date of Admission: 10/02/17 07:33 Date of discharge: 10/05/17 Attending physician: SRAVANI SMITH 10/02/17 15:05 Physical Therapy Evaluation and Treat [CONS] Routine Comment: evaluation for home health Reason For Exam: Gen. debility/gout arthritis 10/02/17 15:14 Occupational Therapy Evaluate and Treat [CONS] Routine Comment: Reason For Exam: Gen. debility Primary care physician: LIANNA AMARO Hospitalization Condition: Stable Hospital course: --Possible gouty arthritis; symptoms slightly improved NSAIDs, steroids, pain medications, supportive care --Leukocytosis/possible cellulitis, trending down Empiric antibiotics with Zosyn, follow cultures --Type 2 diabetes mellitus; uncontrolled, secondary to steroid use Continue current oral hypoglycemics, resume metformin Accu-Chek sliding scale coverage and ADA diet --Hypertension; moderate control continue home amlodipine and when necessary medications. --DVT prophylaxis; Lovenox --Full CODE STATUS --Physical therapy occupational therapy --DC planning possible placement versus home with home health When patient is medically stable Plan of care is reviewed with patient's niece Ms. Duenas Askew the bedside Patient and Ms. Duenas have numerous questions, answered all of them Answered all her questions Awaiting subacute rehabilitation placement when medically stable in 1-2 days Disposition: [id number] Time spent for discharge: 32 min Core Measure Documentation - Palliative Care Palliative Care/ Comfort Measures: Not Applicable - Core Measures Any of the following diagnoses?: none Exam - Constitutional Vitals: Temp Pulse Resp BP Pulse Ox 99.0 F 60 16 149/74 98 10/05/17 08:18 10/05/17 08:18 10/05/17 08:18 10/05/17 08:18 10/05/17 08:18 General appearance: Present: no acute distress, well-nourished - EENT Eyes: Present: PERRL, EOM intact - Neck Neck: Present: supple, normal ROM - Respiratory Respiratory effort: normal Respiratory: negative: rales, rhonchi, wheezing - Cardiovascular Rhythm: regular Heart Sounds: Present: S1 & S2 - Extremities Extremities: no ischemia, No edema, abnormal (gout, significantly improved) - Abdominal General gastrointestinal: Present: soft, non-tender, non-distended, normal bowel sounds - Integumentary Integumentary: Present: clear, warm - Musculoskeletal Musculoskeletal: generalized weakness - Psychiatric Psychiatric: appropriate mood/affect, cooperative - Neurologic Neurologic: moves all extremities Plan Activity: advance as tolerated, fall precautions Diet: low salt, diabetic Special Instructions: physical therapy, occupational therapy Additional Instructions: Fall precautions. Ambulate as tolerated Follow up with: LIANNA AMARO MD [Primary Care Provider] - 7 Days Prescriptions: amLODIPine [Norvasc] 10 mg PO DAILY #30 tablet oxyCODONE /ACETAMINOPHEN [Percocet 5/325 mg] 1 tab PO Q12H PRN #14 tablet PRN Reason: Pain, Moderate (4-6)
[2017-10-05 16:09] VITALS: BP 130/73
== END 2017-10-05 16:59 | DRG 602 ==
LOC: ED 16:40 → 3A 10-02 07:33
PROVIDERS: ADMIT Family Medicine; ATTEND Internal Medicine
DX: L03.031 Cellulitis of right toe (principal); N17.0 Acute kidney failure with tubular necrosis; R65.10 Systemic inflammatory response syndrome (SIRS) of non-infectious origin without acute organ dysfunction; M10.071 Idiopathic gout, right ankle and foot; Z79.82 Long term (current) use of aspirin; Z79.84 Long term (current) use of oral hypoglycemic drugs; I11.0 Hypertensive heart disease with heart failure; I50.9 Heart failure, unspecified; E11.9 Type 2 diabetes mellitus without complications; M10.9 Gout, unspecified; E78.5 Hyperlipidemia, unspecified; Z82.49 Family history of ischemic heart disease and other diseases of the circulatory system; T38.0X5A Adverse effect of glucocorticoids and synthetic analogues, initial encounter; Y92.89 Other specified places as the place of occurrence of the external cause
CPT/HCPCS: 36415; 80048; 82140; 82962; 83036; 83735; 84100; 85025; 87040; 96365; G8978-GP; G8979-GP; G8987-GO; G8988-GO; J1815; J2543; J2920; J7030; J7512